=== PATIENT | male | born 1965 | race African-American/Black ===

== ENCOUNTER 2021-11-14 03:39 | Inpatient (IN) | payer OTHER ==
[~2021-11-14] VITALS: Ht 177.8 cm; Wt 109.7 kg
[2021-11-14] MEDS ORDERED: ONDANSETRON HCL 4 MG/2 ML VIAL IV ONE (07:30)
[2021-11-14] MEDS ORDERED: MORPHINE SULFATE INJ 2 MG/ml SYRG IV ONE (07:30)
[2021-11-14] MEDS ORDERED: SODIUM CHLORIDE 0.9% 1,000 ML IV ONE (07:30)
[2021-11-14 08:54] LABS: Basophils # (auto) 0.1 10 ^3/uL (0-0.2); Basophils % (auto) 1.2 % (0.0-2.0); Eosinophils # (auto) 0.6 10 ^3/uL (0-0.8); Eosinophils % (auto) 10.4 % (0.0-7.0); Hematocrit 43.9 % (41.0-53.0); Hemoglobin 15.5 g/dL (13.5-17.5); Lymphocytes % (auto) 47.8 % (10.0-50.0); Mean Corpuscular Hemoglobin 33.8 pg (28.0-32.0); Mean Corpuscular Hgb Conc. 35.3 g/dL (32.0-36.0); Monocytes # (auto) 0.9 10 ^3/uL (0-1.3); Monocytes % (auto) 14.8 % (0.0-12.0); Neutrophils # (auto) 1.6 10 ^3/uL (1.6-8.6); Neutrophils % (auto) 25.8 % (37.0-80.0); Nucleated Red Blood Cells % 0.2 %; Red Blood Cells 4.58 10^6/uL (4.5-5.90); Red Cell Distribution Width 12.6 % (11.8-14.3); White Blood Cell 6.2 10^3/uL (4.4-10.8)
[2021-11-14 08:57] LABS: Urine Bacteria NONE SEEN /hpf (None Seen); Urine Blood Negative /uL (Negative); Urine Specific Gravity 1.009 (1.001-1.035); Urine WBC <1 /hpf (0 - 3)
[2021-11-14 09:11] LABS: Albumin 2.9 g/dL (3.4-5.0); Calcium 7.6 mg/dL (8.5-10.1); INR 0.94 (0.9-1.15); Magnesium 2.5 mg/dL (1.6-2.6); Partial Thromboplastin Time 29.9 sec (23.6-33.0); Potassium 4.1 mmol/L (3.5-5.1)
[2021-11-14 09:17] LABS: BUN/Creatinine Ratio 17.6; Bilirubin, Total 0.3 mg/dL (0.2-1.0); Total Protein 6.6 g/dL (6.4-8.2)
[2021-11-14] MEDS ORDERED: NITROGLYCERIN 0.4 MG SL TAB SL ONE (10:00)
[2021-11-14] MEDS ORDERED: NITROGLYCERIN 0.4 MG SL TAB SL PRN (12:00)
[2021-11-14] MEDS ORDERED: MORPHINE SULFATE INJ 2 MG/ml SYRG IV PRN ×2 (12:00→13:15)
[2021-11-14] MEDS ORDERED: LORazepam 0.5 MG TAB PO PRN (13:15)
[2021-11-14] MEDS ORDERED: ONDANSETRON HCL 4 MG/2 ML VIAL IV PRN (13:15)
[2021-11-14] MEDS ORDERED: METOPROLOL TARTRATE 1MG/1ML-5ML VIAL IV PRN (13:15)
[2021-11-14] MEDS ORDERED: HYDROcodone-ACET 5/325MG TAB PO PRN (13:15)
[2021-11-14] MEDS ORDERED: dilTIAZem 120MG ER CAP PO ONE (13:15)
[2021-11-14] MEDS ORDERED: hydrALAZINE HCL 20 MG/ML VL IV PRN (13:15)
[2021-11-14] MEDS ORDERED: DOCUSATE SOD 100 MG CAP PO PRN (13:15)
[2021-11-14 14:25] LABS: INR 0.95 (0.9-1.15); Magnesium 2.1 mg/dL (1.6-2.6); Partial Thromboplastin Time 29.5 sec (23.6-33.0); Phosphorus 2.9 mg/dL (2.5-4.90)
[2021-11-14] MEDS: IPRATROPIUM BROM 0.5 MG/2.5ML INH SOL NEB SCH ×2 (15:59→18:45)
[2021-11-14] MEDS ORDERED: IPRATROPIUM BROM 0.5 MG/2.5ML INH SOL NEB PRN (19:30)
[2021-11-14 20:49] VITALS: BP 131/79
[2021-11-14] MEDS: ATORVASTATIN 20 MG TAB PO SCH (22:52)
[2021-11-15 05:00] VITALS: BP 129/70
[2021-11-15 07:12] LABS: Basophils # (auto) 0.1 10 ^3/uL (0-0.2); Basophils % (auto) 1.6 % (0.0-2.0); Eosinophils # (auto) 0.5 10 ^3/uL (0-0.8); Eosinophils % (auto) 8.6 % (0.0-7.0); Hematocrit 42.5 % (41.0-53.0); Hemoglobin 14.9 g/dL (13.5-17.5); Lymphocytes % (auto) 53.5 % (10.0-50.0); Mean Corpuscular Hemoglobin 33.6 pg (28.0-32.0); Mean Corpuscular Hgb Conc. 35.1 g/dL (32.0-36.0); Mean Corpuscular Volume 95.5 fL (80.0-100.0); Monocytes # (auto) 0.7 10 ^3/uL (0-1.3); Monocytes % (auto) 12.7 % (0.0-12.0); Neutrophils # (auto) 1.3 10 ^3/uL (1.6-8.6); Neutrophils % (auto) 23.6 % (37.0-80.0); Nucleated Red Blood Cells % 0.1 %; Red Blood Cells 4.45 10^6/uL (4.5-5.90); Red Cell Distribution Width 12.3 % (11.8-14.3); White Blood Cell 5.7 10^3/uL (4.4-10.8)
[2021-11-15 07:26] LABS: Magnesium 1.9 mg/dL (1.6-2.6); Potassium 3.8 mmol/L (3.5-5.1)
[2021-11-15 07:27] LABS: INR 0.97 (0.9-1.15); Partial Thromboplastin Time 29.5 sec (23.6-33.0)
[2021-11-15 07:33] LABS: Albumin 2.8 g/dL (3.4-5.0); BUN/Creatinine Ratio 13.9; Bilirubin, Total 0.5 mg/dL (0.2-1.0); CRP High Sensitivity 0.03 mg/dL (< 0.3); Calcium 8.1 mg/dL (8.5-10.1); Phosphorus 2.9 mg/dL (2.5-4.90); Total Protein 6.3 g/dL (6.4-8.2); Uric Acid 5.2 mg/dL (3.5-7.2)
[2021-11-15 08:30] VITALS: BP 131/73
[2021-11-15] MEDS: ACETAMINOPHEN 325 MG TAB PO PRN ×3 (08:30→22:11)
[2021-11-15] MEDS: ASPirin 81 mg TAB PO SCH (10:01)
[2021-11-15] MEDS: ENOXAPARIN SOD 40 MG/0.4 ML SYRINGE SC SCH (10:01)
[2021-11-15] MEDS: FAMOTIDINE (10MG/ML) 2ML VL IV SCH (10:01)
[2021-11-15] MEDS: dilTIAZem 120MG ER CAP PO SCH (10:02)
[2021-11-15 13:00] VITALS: BP 159/94
[2021-11-15 17:00] VITALS: BP 140/92
[2021-11-15] MEDS: ATORVASTATIN 20 MG TAB PO SCH (21:09)
[2021-11-15 22:00] VITALS: BP 173/92
[2021-11-16] MEDS: ceFAZolin 1GM/50ML 50 ML IV SCH ×4 (00:32→18:00)
[2021-11-16] MEDS: NEOMYCIN-POLYMY-DEXAMETH 0.1% OPTH(EYE) SUSP 5ML LEFTEYE SCH ×2 (01:44→06:00)
[2021-11-16 05:00] VITALS: BP 129/79
[2021-11-16] MEDS: ACETAMINOPHEN 325 MG TAB PO PRN (05:43)
[2021-11-16 09:00] VITALS: BP 147/76
[2021-11-16] MEDS: FAMOTIDINE (10MG/ML) 2ML VL IV SCH (09:29)
[2021-11-16] MEDS: ASPirin 81 mg TAB PO SCH (09:30)
[2021-11-16] MEDS: dilTIAZem 120MG ER CAP PO SCH (09:31)
[2021-11-16] MEDS: ENOXAPARIN SOD 40 MG/0.4 ML SYRINGE SC SCH (09:31)
[2021-11-16] MEDS: GENTAMICIN OPTH sol 0.3% 5ml EACHEYE SCH ×4 (11:59→22:11)
[2021-11-16 13:00] VITALS: BP 135/75
[2021-11-16 13:58] LABS: Hepatitis A Ab IgM Negative; Hepatitis B Core IgM Negative
[2021-11-16 14:10] LABS: Hepatitis C Antibody Positive (Negative)
[2021-11-16 17:00] VITALS: BP 136/93
[2021-11-16 22:00] VITALS: BP 130/76
[2021-11-16] MEDS: ATORVASTATIN 20 MG TAB PO SCH (22:11)
[2021-11-17] MEDS: GENTAMICIN OPTH sol 0.3% 5ml EACHEYE SCH ×3 (02:00→09:07)
[2021-11-17 05:00] VITALS: BP 144/92
[2021-11-17] MEDS: ceFAZolin 1GM/50ML 50 ML IV SCH ×2 (06:00)
[2021-11-17 09:00] VITALS: BP 133/47
[2021-11-17] MEDS: ENOXAPARIN SOD 40 MG/0.4 ML SYRINGE SC SCH (09:07)
[2021-11-17] MEDS: FAMOTIDINE (10MG/ML) 2ML VL IV SCH (09:07)
[2021-11-17] MEDS: ASPirin 81 mg TAB PO SCH (09:07)
[2021-11-17] MEDS: dilTIAZem 120MG ER CAP PO SCH (09:08)
[2021-11-17] MEDS ORDERED: DILT120T8 PO (09:31)
[2021-11-17] MEDS ORDERED: ASPI-463 PO (09:31)
[2021-11-17] MEDS ORDERED: ATO40T PO (09:31)
== END 2021-11-17 12:40 | disposition home or self-care (01) | DRG 198 ==
LOC: ER 03:39 → TELE 11:58 → TELE-CENTR 23:20
PROVIDERS: ADMIT Hospitalist; ATTEND Family Medicine
DX: R07.89 Other chest pain (principal); I25.2 Old myocardial infarction; E44.0 Moderate protein-calorie malnutrition; I11.9 Hypertensive heart disease without heart failure; I50.9 Heart failure, unspecified; I47.1 Supraventricular tachycardia; I48.91 Unspecified atrial fibrillation; E88.09 Other disorders of plasma-protein metabolism, not elsewhere classified; I11.0 Hypertensive heart disease with heart failure; Z20.822 Contact with and (suspected) exposure to COVID-19; I25.5 Ischemic cardiomyopathy; F12.90 Cannabis use, unspecified, uncomplicated; F14.90 Cocaine use, unspecified, uncomplicated; I16.9 Hypertensive crisis, unspecified; E66.01 Morbid (severe) obesity due to excess calories; E78.00 Pure hypercholesterolemia, unspecified; E78.5 Hyperlipidemia, unspecified; F17.210 Nicotine dependence, cigarettes, uncomplicated; Z95.5 Presence of coronary angioplasty implant and graft; Z82.49 Family history of ischemic heart disease and other diseases of the circulatory system; Z79.899 Other long term (current) drug therapy; Z63.4 Disappearance and death of family member; Z68.34 Body mass index [BMI] 34.0-34.9, adult
CPT/HCPCS: 36415; 71046; 80053; 80061; 80074; 81001; 82550; 82728; 83036; 83615; 83690; 83735; 83880; 84100; 84443; 84484; 84550; 85025; 85379; 85610; 85652; 85730; 86141; 87040; 87086; 93005; 93306; 94640; 96361; 96374; 96375; G0378; J0690; J2405; J3490